=== PATIENT | male | born 1955 | race Caucasian/White ===

== ENCOUNTER 2024-10-26 09:26 | Outpatient (AMB) | payer OTHER, SELFPAY ==
--- NOTE | 2024-10-26 09:29 | ORTHONT_ITS ---
Vital signs 10/26/24 09:40 Height 1.57 m Height Method Stated Weight 98.061 kg Weight Measurement Method Standing Scale BMI 39.5 BP 158/83 H Blood Pressure Source Automatic Cuff Blood Pressure Location Left Upper Arm Position Sitting Respiration 18 Pulse 80 Pulse Source Monitor Temp 96.7 F L Temp Source Temporal Artery Scan Pulse Oximetry (%) 94 L Oxygen Delivery Method Room Air Med/Allergies Allergies & Medications Allergies No Known Allergies Allergy (Verified 10/26/24 09:41) Medication Reconciliation cholecalciferol (vitamin D3) 25 mcg (1,000 unit) capsule 25 mcg PO QDAY 10/26/24 [History Confirmed 10/26/24] docusate sodium 100 mg capsule 100 mg PO QDAY 10/26/24 [History Confirmed 10/26/24] empagliflozin 25 mg tablet 25 mg PO QAM 10/26/24 [History Confirmed 10/26/24] hydrochlorothiazide 25 mg tablet 25 mg PO QAM 10/26/24 [History Confirmed 10/26/24] lisinopril 40 mg tablet 40 mg PO QDAY 10/26/24 [History Confirmed 10/26/24] mecobalamin (vitamin B12) 500 mcg chewable tablet mcg PO 10/26/24 [History Confirmed 10/26/24] meloxicam 7.5 mg tablet 7.5 mg PO QDAY #45 tabs 10/26/24 [Rx] metformin 500 mg tablet 500 mg PO QDAY 10/26/24 [History Confirmed 10/26/24] omeprazole 20 mg capsule,delayed release 20 mg PO QDAY 10/26/24 [History Confirmed 10/26/24] semaglutide 1 mg/dose (4 mg/3 mL) subcutaneous pen injector (Ozempic) 1 mg subcut QWEEK 10/26/24 [History Confirmed 10/26/24] simvastatin 20 mg tablet 20 mg PO QDAY 10/26/24 [History Confirmed 10/26/24] Exam Exam Patient is in no acute distress and is cooperative with the examination today. Breathing is nonlabored. Patient has a normal mood and affect. Bilateral extremities were evaluated and demonstrates sensation intact to light touch. Palpable pedal pulses are present. No significant edema is present. Bilateral hips were examined. The patient has no pain with log roll of the hips. Internal rotation to 30 degrees and external rotation to 30 degrees is painless. Negative FADIR. Right knee was examined today. The right knee is in reasonable alignment. Range of motion from 0-120 degrees. Knee is stable to varus and valgus as well as AP translation with <5mm. Patient has a negative McMurrays. There is no pain with patellofemoral compression and no crepitus noted. The knee is nontender to palpation. Left knee was examined today. The left knee is in varus alignment. Range of motion from 0-115 degrees. Knee is stable to varus and valgus as well as AP translation with <5mm. Patient has a negative McMurrays. There is no pain with patellofemoral compression and no crepitus noted. The knee is tender to palpation medially. X-rays of the left knee demonstrates moderate arthritis. These are nonweightbearing films Assessment and Plan Problem List (1) Arthritis of left knee: Status: Acute Plan: Patient is a pleasant 69-year-old male with a left and left knee arthritis. We discussed different treatment options. He would like to try conservative treatment at this time including anti-inflammatories. Will also need weightbearing x-rays. Should he not get great relief, I would recommend a cortisone injection. Advanced Care Planning Discussion Advance care planning discussed with:: patient Office Procedures GNS Level of Care Nursing/Assessment Patient Status: Initial/New Patient Nursing Assessment/Reassesment: Medication Reconciliation, Update PMH in EMR and Vital Signs Coordination of Care: Complex Care and Chronic Disease 1-5, Education Complex Pt/Fam, Consent,records obtained, informed consent, 1 Ins Authorization, Lab and Imaging orders, Results/Orders obtained and Staff clarify orders New Patient Charge New Patient Point Assignment: 1124 New Patient Point Charge: MICROFILM TECHNICIAN Level 4 ([id number]) MA Intake Visit Data Collection New Patient or Established: New Patient (never been to [facility]) Reason for Visit:: LEFT KNEE ARTHRITIS Seen by Clinical Staff ONLY (RN/MA): No PCP or OBGYN visit in last 3 months: Yes Hx Now: No Do You Feel Safe at Home: Yes Authorities Contacted: N/A Questionairres Past Medical History Past Medical History Have you ever been diagnosed with any of the following: Cardiology Problems Hypercholesterolemia: Yes Hypertension: Yes Endocrine Problems Diabetes Mellitus Type 2: Yes Subjective Visit Visit for: new patient and knee (LEFT) Immunization / Flu Flu Vaccine in the Last 12 Months: Yes Flu Vaccine Exclusion Criteria: Already Received History of Present Illness Chief complaint: Left knee pain Date of injury / onset of symptoms: 1 YEAR Jayden is a pleasant 69-year-old male with left knee pain and left knee arthritis. The left knee pain has been ongoing for 1 year. He has severe arthritis on x-ray. He has not tried any injections. He does have a history of diabetes with an A1c of 7.4. Personal History Occupation: RETIRED BMI Counceling provided: Yes Pain Pain level (0-10): 8 Pain duration: WHEN STANDING LONG PERIOD Pain location: outside (lateral) Pain quality: sharp, dull and aching Pain timing: increases with activity and stairs Ambulatory data Ambulatory device: none Treatments Number of previous injections: 0 Improvement with previous injections: No Number of Physical Therapy sessions: 0 Improvement with PT: No Improvement with NSAIDS: no (IBUPROFEN/TYLENOL) Review of Systems Review of Systems: All systems negative unless otherwise noted in HPI.
[2024-10-26 09:40] VITALS: BP 158/83; PULSE 80; RESP 18; TEMP 35.9; O2SAT 94; BMI 39.5
--- NOTE | 2024-10-26 09:49 | XR_ITS ---
Examination: Bilateral AP knees single view Left knee PA lateral axial 3 views TECHNIQUE: Bilateral AP knees standing single view Left knee standing PA flexion, standing lateral, axial left knee 3 views total 4 views Date and time: October 26, 2024 1017 hours INDICATIONS: Left knee pain 2 years. FINDINGS: Moderate osteopenia. Severe narrowing lateral joint space left knee, [id number] Significant osteoarthritis left patellofemoral joint Mild to moderate narrowing lateral joint space right knee Mild narrowing medial joint space right knee IMPRESSION: Severe narrowing lateral joint space left knee, [id number] Significant osteoarthritis left patellofemoral joint
== END 2024-10-26 09:53 | disposition home or self-care (01) ==
PROVIDERS: PCP Internal Medicine Pulmonary Disease; Referring Provider Internal Medicine Pulmonary Disease; Supervising Provider Orthopaedic Surgery Adult Reconstructive Orthopaedic Surgery; Visit Provider Orthopaedic Surgery Adult Reconstructive Orthopaedic Surgery
DX: M17.0 Bilateral primary osteoarthritis of knee (principal); I10 Essential (primary) hypertension; E78.00 Pure hypercholesterolemia, unspecified; E11.9 Type 2 diabetes mellitus without complications; M25.562 Pain in left knee
CPT/HCPCS: 73564; 99204; G0463

== ENCOUNTER 2024-12-07 09:28 | Outpatient (AMB) | payer OTHER, SELFPAY ==
--- NOTE | 2024-12-07 09:34 | PD.ORTHCLVIS ---
Vital signs 12/07/24 09:39 Height 1.57 m Height Method Measured Weight 98.203 kg Weight Measurement Method Standing Scale BMI 39.8 BP 174/79 H Blood Pressure Source Automatic Cuff Blood Pressure Location Left Upper Arm Position Sitting Respiration 16 Pulse 81 Pulse Source Monitor Temp 97.3 F Temp Source Temporal Artery Scan Pulse Oximetry (%) 95 Oxygen Delivery Method Room Air Med/Allergies Allergies & Medications Allergies No Known Allergies Allergy (Verified 12/07/24 09:40) Medication Reconciliation cholecalciferol (vitamin D3) 25 mcg (1,000 unit) capsule 25 mcg PO QDAY 10/26/24 [History Confirmed 12/07/24] docusate sodium 100 mg capsule 100 mg PO QDAY 10/26/24 [History Confirmed 12/07/24] empagliflozin 25 mg tablet 25 mg PO QAM 10/26/24 [History Confirmed 12/07/24] hydrochlorothiazide 25 mg tablet 25 mg PO QAM 10/26/24 [History Confirmed 12/07/24] lisinopril 40 mg tablet 40 mg PO QDAY 10/26/24 [History Confirmed 12/07/24] mecobalamin (vitamin B12) 500 mcg chewable tablet mcg PO 10/26/24 [History Confirmed 12/07/24] meloxicam 7.5 mg tablet 7.5 mg PO QDAY #45 tabs 10/26/24 [Rx Confirmed 12/07/24] metformin 500 mg tablet 500 mg PO QDAY 10/26/24 [History Confirmed 12/07/24] omeprazole 20 mg capsule,delayed release 20 mg PO QDAY 10/26/24 [History Confirmed 12/07/24] semaglutide 1 mg/dose (4 mg/3 mL) subcutaneous pen injector (Ozempic) 1 mg subcut QWEEK 10/26/24 [History Confirmed 12/07/24] simvastatin 20 mg tablet 20 mg PO QDAY 10/26/24 [History Confirmed 12/07/24] Exam Exam Patient is in no acute distress and is cooperative with the examination today. Breathing is nonlabored. Patient has a normal mood and affect. Bilateral extremities were evaluated and demonstrates sensation intact to light touch. Palpable pedal pulses are present. No significant edema is present. Bilateral hips were examined. The patient has no pain with log roll of the hips. Internal rotation to 30 degrees and external rotation to 30 degrees is painless. Negative FADIR. Right knee was examined today. The right knee is in reasonable alignment. Range of motion from 0-120 degrees. Knee is stable to varus and valgus as well as AP translation with <5mm. Patient has a negative McMurrays. There is no pain with patellofemoral compression and no crepitus noted. The knee is nontender to palpation. Left knee was examined today. The left knee is in varus alignment. Range of motion from 0-115 degrees. Knee is stable to varus and valgus as well as AP translation with <5mm. Patient has a negative McMurrays. There is no pain with patellofemoral compression and no crepitus noted. The knee is tender to palpation medially. X-rays of the left knee demonstrates severe arthritis. These are weight bearing xrays and he has valgus arthritis and valgus deformity. Assessment and Plan Problem List (1) Arthritis of left knee: Status: Acute Plan: Patient is a pleasant 69-year-old male with a left and left knee arthritis. We discussed different treatment options. For the left knee, he has significant valgus arthritis. We discussed different treatment options. He would like to continue with conservative treatment including medications for now. He will call us if he would want an injection Please send a copy of this note to Dr. Rabago at the [place] Advanced Care Planning Discussion Advance care planning discussed with:: patient Office Procedures GNS Level of Care Nursing/Assessment Patient Status: Established Patient Nursing Assessment/Reassesment: Medication Reconciliation, Update PMH in EMR and Vital Signs Coordination of Care: Complex Care and Chronic Disease 1-5, Education Complex Pt/Fam, Consent,records obtained, informed consent, Results/Orders obtained and Staff clarify orders Established Patient Charge Established Patient Point Assignment: 95 Established Patient Point Charge: EP Level 3 (80-115) MA Intake Visit Data Collection New Patient or Established: Established Patient (seen at [facility] within 3 years) Reason for Visit:: FOLLOW UP ON XRAY RESULTS Seen by Clinical Staff ONLY (RN/MA): No Creative Services Specialist Required: No PCP or OBGYN visit in last 3 months: Yes Hx Now: No Do You Feel Safe at Home: Yes Authorities Contacted: N/A Questionairres Past Medical History Past Medical History Have you ever been diagnosed with any of the following: Cardiology Problems Hypercholesterolemia: Yes Hypertension: Yes Endocrine Problems Diabetes Mellitus Type 2: Yes Subjective Visit Visit for: follow up visit and knee Immunization / Flu Flu Vaccine in the Last 12 Months: Yes Flu Vaccine Exclusion Criteria: Already Received History of Present Illness Chief complaint: FOLLOW UP XRAY RESULTS Date of injury / onset of symptoms: 1 YEAR Jayden is a pleasant 69-year-old male with left knee pain and left knee arthritis. The left knee pain has been ongoing for 1 year. He has severe arthritis on x-ray. He has not tried any injections. He does have a history of diabetes with an A1c of 7.4. Personal History Occupation: RETIRED BMI Counceling provided: Yes Pain Pain level (0-10): 0 Pain duration: WHEN STANDING LONG PERIOD Pain location: outside (lateral) Pain quality: sharp, dull and aching Pain timing: increases with activity and stairs Ambulatory data Ambulatory device: none Treatments Number of previous injections: 0 Improvement with previous injections: No Number of Physical Therapy sessions: 0 Improvement with PT: No Improvement with NSAIDS: no (IBUPROFEN/TYLENOL) Review of Systems Review of Systems: All systems negative unless otherwise noted in HPI.
[2024-12-07 09:39] VITALS: BP 174/79; PULSE 81; RESP 16; TEMP 36.3; O2SAT 95; BMI 39.8
== END 2024-12-07 10:01 | disposition home or self-care (01) ==
PROVIDERS: PCP Internal Medicine Pulmonary Disease; Referring Provider Internal Medicine Pulmonary Disease; Supervising Provider Orthopaedic Surgery Adult Reconstructive Orthopaedic Surgery; Visit Provider Orthopaedic Surgery Adult Reconstructive Orthopaedic Surgery
DX: M17.12 Unilateral primary osteoarthritis, left knee (principal); M21.062 Valgus deformity, not elsewhere classified, left knee; M25.562 Pain in left knee; I10 Essential (primary) hypertension; E11.9 Type 2 diabetes mellitus without complications; E78.00 Pure hypercholesterolemia, unspecified
CPT/HCPCS: 99213; G0463